=== PATIENT | male | born 1955 | race Caucasian/White ===

== ENCOUNTER 2022-07-28 05:51 | Day surgery (SDC) | payer MEDICARE, MEDICAID ==
[2022-07-27 13:15] LABS: BASOPHILS % (AUTO) 0.5 % (0-1); EOSINOPHILS # (AUTO) 0.2 X10'3 (0-0.9); EOSINOPHILS % (AUTO) 3.2 % (0-6); HEMATOCRIT 43.8 % (42.0-52.0); HEMOGLOBIN 14.8 g/dl (14.0-17.9); LYMPHOCYTES # (AUTO) 1.5 X10'3 (1.1-4.8); LYMPHOCYTES % (AUTO) 28.3 % (21-51); MEAN CORPUSCULAR HEMOGLOBIN 30.1 PG (27.0-31.0); MEAN CORPUSCULAR HGB CONC 33.8 g/dL (33.0-36.5); MEAN CORPUSCULAR VOLUME 89.1 FL (78-98); MEAN PLATELET VOLUME 7.5 FL (7.4-10.4); MONOCYTES # (AUTO) 0.5 X10'3 (0-0.9); MONOCYTES % (AUTO) 9.4 % (2-12); NEUTROPHILS # (AUTO) 3.1 X10'3 (1.8-7.7); NEUTROPHILS % (AUTO) 58.6 % (42-75); PLATELET COUNT 173 X10'3 (140-440); RED BLOOD COUNT 4.91 X10'6 (4.70-6.10); RED CELL DISTRIBUTION WIDTH 15.4 % (11.5-14.5); WHITE BLOOD COUNT 5.3 X10'3 (4.5-11.0)
[2022-07-27 13:21] LABS: ALBUMIN 3.6 G/DL (3.4-5.0); ANION GAP 7 (8-16); APTT 30 SECONDS (22-32); BLOOD UREA NITROGEN 23 MG/DL (7-18); BUN/CREATININE RATIO 15.4 (5.4-32.0); CALCIUM 8.7 MG/DL (8.5-10.1); CHLORIDE 105 MMOL/L (99-107); CREATININE 1.49 MG/DL (0.60-1.10); GLUCOSE 163 MG/DL (70-104); POTASSIUM 4.3 MMOL/L (3.5-5.1); SODIUM 139 MMOL/L (135-145); TOTAL CARBON DIOXIDE 27.2 MMOL/L (24-32); eGFR 47 ML/MIN
[~2022-07-28] VITALS: Ht 177.8 cm; Wt 107.1 kg
[2022-07-28] VITALS (15 sets, daily range): BP systolic 114–137; BP diastolic 57–99
[~2022-07-28 05:51] MED LIST: ATOR40TA72 PO; CLOP75TA33 PO; GABA-534 PO; HYDR-3972 PO; LISI10TA27 PO; LOP25T PO; MORP-92 PO; iohexol 350 MG/ML 50ML vial IV ONE
[2022-07-28] MEDS ORDERED: diphenhydrAMINE 25mg capsule PO PRN (06:20)
[2022-07-28] MEDS ORDERED: sodium bicarbonate 1meq/ml syr 150 ML in dextrose 5%-water 850 ML IV ONE ×2 (06:20→11:55)
[2022-07-28] MEDS ORDERED: LORazepam 0.5 MG tablet PO PRN (06:20)
[2022-07-28] MEDS ORDERED: acetylcysteine 200 MG/ml 4ml vial PO PRN ×2 (06:20→11:55)
[2022-07-28] MEDS ORDERED: normal saline 1,000 ML IV SCH (06:20)
[2022-07-28] MEDS ORDERED: ASPI-611 PO (06:43)
[2022-07-28] MEDS ORDERED: NITR0.4T48 SL (06:44)
[2022-07-28] MEDS ORDERED: verapamil 2.5 mg/ml inj IV ONE (07:33)
[2022-07-28] MEDS ORDERED: nitroGLYCERIN-Tridil 50MG/D5W 250 ML IV ONE (07:33)
[2022-07-28] MEDS ORDERED: fentaNYL/PF 50MCG/1 ML 2ML syringe ONE (07:34)
[2022-07-28] MEDS ORDERED: midazolam 1 mg/ML 2ml injection ONE (07:34)
[2022-07-28] MEDS ORDERED: LIDOcaine 1% (10mg/ml) 2ml vial ONE (07:34)
[2022-07-28] MEDS ORDERED: iohexol 350MG/ML 100ml bottle IV ONE ×3 (07:34→09:14)
[2022-07-28] MEDS ORDERED: heparin 1,000unit/ml 10ml vial 10 ML ONE (07:34)
[2022-07-28] MEDS ORDERED: iohexol 350 MG/ML 50ML vial IV ONE (07:41)
[2022-07-28] MEDS ORDERED: HEPARIN SOD,PORK IN 0.45% NACL 250 ML IV ONE (08:51)
[2022-07-28] MEDS ORDERED: clopidogrel 300mg tablet ONE (09:26)
[2022-07-28] MEDS ORDERED: furosemide 40mg/4ml inj ONE (09:34)
[2022-07-28 10:23] LABS: ISTAT Hct MIX 41 %PCV (42-52); ISTAT O2 SATURATION MIX VENOUS 64 % (60-80); ISTAT SOURCE BLNK
[2022-07-28 10:23] LABS: ISTAT HGB ART 14.3 g/dl (14.0-17.9); ISTAT Hct ART 42 %PCV (42-52); ISTAT O2 SATURATION ARTERIAL 97 % (95-98); ISTAT SOURCE BLNK
[2022-07-28] MEDS ORDERED: sodium bicarbonate 1meq/ml syr 150 ML in dextrose 5%-water 1,000 ML IV ONE (10:25)
[2022-07-28] MEDS ORDERED: SODIUM BICARB 150mEq/D5W 1L 1,000 ML IV ONE (10:35)
[2022-07-28] MEDS ORDERED: acetylcysteine 200 MG/ml 4ml vial PO ONE ×2 (11:15→17:00)
[2022-07-28] MEDS ORDERED: HYDROcodone/acetaminophen 10/325mg tab PO PRN ×2 (11:50)
[2022-07-28] MEDS ORDERED: HYDROcodone/acetaminophen 5mg/325mg tablet PO PRN ×2 (11:50)
[2022-07-29] MEDS ORDERED: clopidogrel 75mg tablet PO SCH ×2 (08:00)
== END 2022-07-28 16:55 | disposition short-term general hospital (02) ==
LOC: SSTAY O 05:51
PROVIDERS: ATTEND Internal Medicine Cardiovascular Disease
DX: T82.855A Stenosis of coronary artery stent, initial encounter (principal); I35.2 Nonrheumatic aortic (valve) stenosis with insufficiency; I25.10 Atherosclerotic heart disease of native coronary artery without angina pectoris; I10 Essential (primary) hypertension; E78.5 Hyperlipidemia, unspecified; J44.9 Chronic obstructive pulmonary disease, unspecified; E66.3 Overweight; Z68.34 Body mass index [BMI] 34.0-34.9, adult; M19.09 Primary osteoarthritis, other specified site; F17.211 Nicotine dependence, cigarettes, in remission; Z98.890 Other specified postprocedural states; Z79.01 Long term (current) use of anticoagulants; Z79.899 Other long term (current) drug therapy; Z79.82 Long term (current) use of aspirin; Z82.3 Family history of stroke; Z81.8 Family history of other mental and behavioral disorders; Y83.8 Other surgical procedures as the cause of abnormal reaction of the patient, or of later complication, without mention of misadventure at the time of the procedure; Y92.89 Other specified places as the place of occurrence of the external cause
CPT/HCPCS: 36415; 76937; 80048; 82803; 85014; 85025; 85347; 85610; 85730; 92920; 93005; 93460; 93567; 99152; 99153; A6258; C1725; C1751; C1769; C1894; J1644; J1940; J2250; J3010; J3490; J7030; J7070; Q0163; Q9967; A6402

== ENCOUNTER 2023-04-06 11:07 | Emergency (ER) | payer MEDICARE, MEDICAID ==
[~2023-04-06] VITALS: Ht 177.8 cm; Wt 103.0 kg
[~2023-04-06 11:07] MED LIST changes: +ASPI-611 PO; -GABA-534 PO; -HYDR-3972 PO; -MORP-92 PO; +NITR0.4T48 SL; -iohexol 350 MG/ML 50ML vial IV ONE
[2023-04-06] MEDS ORDERED: ondansetron/PF 4mg/2ml inj IV ONE (13:05)
[2023-04-06] MEDS ORDERED: morphine 4 MG/ML inj SYRINge IV ONE ×2 (13:05→14:30)
--- NOTE | 2023-04-06 13:38 | NUR ---
5 RECEIVED REPORT FROM JONATHAN RN ASSUMING CARE DURING 30 MIN LUNCH BREAK
[2023-04-06 14:59] LABS: BASOPHILS % (AUTO) 0.4 % (0-1); EOSINOPHILS # (AUTO) 0.1 X10'3 (0-0.9); EOSINOPHILS % (AUTO) 2.8 % (0-6); HEMATOCRIT 39.7 % (42.0-52.0); HEMOGLOBIN 13.1 g/dl (14.0-17.9); LYMPHOCYTES # (AUTO) 1.4 X10'3 (1.1-4.8); LYMPHOCYTES % (AUTO) 25.4 % (21-51); MEAN CORPUSCULAR HEMOGLOBIN 29.4 PG (27.0-31.0); MEAN CORPUSCULAR HGB CONC 33.1 g/dL (33.0-36.5); MEAN CORPUSCULAR VOLUME 88.7 FL (78-98); MEAN PLATELET VOLUME 7.3 FL (7.4-10.4); MONOCYTES # (AUTO) 0.5 X10'3 (0-0.9); NEUTROPHILS # (AUTO) 3.4 X10'3 (1.8-7.7); NEUTROPHILS % (AUTO) 62.4 % (42-75); PLATELET COUNT 164 X10'3 (140-440); RED BLOOD COUNT 4.47 X10'6 (4.70-6.10); RED CELL DISTRIBUTION WIDTH 16.9 % (11.5-14.5); WHITE BLOOD COUNT 5.4 X10'3 (4.5-11.0)
[2023-04-06 15:11] LABS: ALANINE AMINOTRANSFERASE 36 U/L (12-78); ALBUMIN 3.3 G/DL (3.4-5.0); ALBUMIN/GLOBULIN RATIO 0.9 (1.1-1.5); ALKALINE PHOSPHATASE 65 IU/L (46-116); ANION GAP 5 (8-16); ASPARTATE AMINO TRANSFERASE 31 U/L (10-37); BILIRUBIN,TOTAL 0.4 MG/DL (0.1-1.0); BLOOD UREA NITROGEN 27 MG/DL (7-18); BUN/CREATININE RATIO 21.8 (10.0-20.0); CALCIUM 8.9 MG/DL (8.5-10.1); CHLORIDE 105 MMOL/L (99-107); CREATININE 1.24 MG/DL (0.60-1.10); GLUCOSE 121 MG/DL (70-104); POTASSIUM 5.2 MMOL/L (3.5-5.1); SODIUM 134 MMOL/L (135-145); TOTAL CARBON DIOXIDE 24.3 MMOL/L (24-32); TOTAL PROTEIN 6.8 G/DL (6.4-8.2); eCRCL 59 ML/MIN; eGFR 58 ML/MIN
[2023-04-06 15:13] LABS: APTT 29 SECONDS (22-32); PROTHROMBIN TIME 10.4 SECONDS (9.0-12.0)
[2023-04-06] MEDS ORDERED: fentaNYL/PF 50MCG/1 ML 2ML syringe IV ONE (16:00)
[2023-04-06] MEDS ORDERED: propofol 10mg/ml 20ml vial IV ONE (16:05)
[2023-04-06] MEDS ORDERED: HYDR-3973 PO ×3 (17:52→20:24)
[2023-04-06 18:28] VITALS: BP 152/68; PULSE 64; RESP 17; TEMP 97.9; O2SAT 97
== END 2023-04-06 18:33 | disposition home or self-care (01) ==
LOC: ER 11:08
DX: S52.092A Other fracture of upper end of left ulna, initial encounter for closed fracture (principal); X58.XXXA Exposure to other specified factors, initial encounter; Y93.89 Activity, other specified; Y92.89 Other specified places as the place of occurrence of the external cause; Y99.8 Other external cause status
CPT/HCPCS: 24600; 36415; 71045; 73080; 73090; 80053; 85025; 85610; 85730; 96374; 96375; 96376; 99152; 99285; J2270; J2405; J3010; J7030; 94760; A4620

== ENCOUNTER 2024-07-19 06:05 | Day surgery (SDC) | payer BC, MEDICAID ==
[2024-07-18 11:51] LABS: BASOPHILS % (AUTO) 0.6 % (0-1); EOSINOPHILS # (AUTO) 0.1 X10'3 (0-0.9); EOSINOPHILS % (AUTO) 2.1 % (0-6); HEMATOCRIT 46.2 % (42.0-52.0); HEMOGLOBIN 15.7 g/dl (14.0-17.9); LYMPHOCYTES # (AUTO) 1.5 X10'3 (1.1-4.8); MEAN CORPUSCULAR HEMOGLOBIN 30.2 PG (27.0-31.0); MEAN CORPUSCULAR VOLUME 88.8 FL (78-98); MEAN PLATELET VOLUME 7.4 FL (7.4-10.4); MONOCYTES # (AUTO) 0.7 X10'3 (0-0.9); MONOCYTES % (AUTO) 9.7 % (2-12); NEUTROPHILS # (AUTO) 4.5 X10'3 (1.8-7.7); NEUTROPHILS % (AUTO) 65.6 % (42-75); PLATELET COUNT 189 X10'3 (140-440); RED BLOOD COUNT 5.21 X10'6 (4.70-6.10); RED CELL DISTRIBUTION WIDTH 16.3 % (11.5-14.5); WHITE BLOOD COUNT 6.9 X10'3 (4.5-11.0)
[2024-07-18 12:08] LABS: ALBUMIN 3.6 G/DL (3.4-5.0)
[2024-07-18 12:10] LABS: APTT 29 SECONDS (22-32)
[2024-07-18 12:16] LABS: ANION GAP 9 (8-16); BLOOD UREA NITROGEN 25 MG/DL (7-18); BUN/CREATININE RATIO 16.2 (10.0-20.0); CHLORIDE 103 MMOL/L (99-107); CREATININE 1.54 MG/DL (0.60-1.10); GLUCOSE 150 MG/DL (70-104); POTASSIUM 4.8 MMOL/L (3.5-5.1); PROTHROMBIN TIME 10.3 SECONDS (9.0-12.0); SODIUM 138 MMOL/L (135-145); eGFR 45 ML/MIN
[~2024-07-19] VITALS: Ht 177.8 cm; Wt 105.6 kg
[2024-07-19] VITALS (11 sets, daily range): BP systolic 111–135; BP diastolic 56–68; PULSE 57–64; RESP 12–16; TEMP 98.1; O2SAT 94–96
[~2024-07-19 06:05] MED LIST changes: +HYDR-3973 PO
[2024-07-19] MEDS ORDERED: acetylcysteine 200 MG/ml 4ml vial PO PRN (06:25)
[2024-07-19] MEDS ORDERED: LORazepam 0.5 MG tablet PO PRN (06:25)
[2024-07-19] MEDS: sodium bicarbonate 1meq/ml syr 150 ML in dextrose 5%-water 1,000 ML IV ONE (07:23)
[2024-07-19] MEDS ORDERED: nitroGLYCERIN 500mcg/5mL D5W 5 ML IV ONE (07:24)
[2024-07-19] MEDS: diphenhydrAMINE 25mg capsule PO PRN (07:25)
[2024-07-19] MEDS ORDERED: LIDOcaine 1% (10mg/ml) 2ml vial ONE (07:25)
[2024-07-19] MEDS ORDERED: iohexol 350 MG/ML 50ML vial IV ONE (07:25)
[2024-07-19] MEDS ORDERED: iohexol 350MG/ML 100ml bottle IV ONE (07:25)
[2024-07-19] MEDS ORDERED: heparin 1,000unit/ml 10ml vial 10 ML ONE (07:25)
[2024-07-19] MEDS ORDERED: verapamil 2.5 mg/ml inj IV ONE (07:25)
[2024-07-19] MEDS: acetylcysteine 200 MG/ml 4ml vial PO SCH (07:27)
[2024-07-19] MEDS: normal saline 1,000 ML IV SCH (07:28)
[2024-07-19] MEDS ORDERED: LIDOcaine 1% 30ml preserv. free vial ONE (07:35)
[2024-07-19] MEDS ORDERED: midazolam 1 mg/ML 2ml injection ONE (08:18)
[2024-07-19] MEDS ORDERED: fentaNYL/PF 50MCG/1 ML 2ML syringe ONE (08:18)
[2024-07-19 09:31] LABS: ISTAT HGB ART 14.3 g/dl (14.0-17.9); ISTAT Hct ART 42 %PCV (42-52); ISTAT O2 SATURATION ARTERIAL 95 % (95-98); ISTAT SOURCE ART
[2024-07-20 06:23] LABS: ISTAT HGB MIX 14.3 g/dl (14.0-17.9); ISTAT Hct MIX 42 %PCV (42-52); ISTAT O2 SATURATION MIX VENOUS 63 % (60-80); ISTAT SOURCE VEN
== END 2024-07-19 14:00 | disposition home or self-care (01) ==
LOC: SSTAY O 06:05
PROVIDERS: ATTEND Internal Medicine Cardiovascular Disease
DX: R94.39 Abnormal result of other cardiovascular function study (principal); I25.10 Atherosclerotic heart disease of native coronary artery without angina pectoris; I35.2 Nonrheumatic aortic (valve) stenosis with insufficiency; I10 Essential (primary) hypertension; E78.5 Hyperlipidemia, unspecified; J44.9 Chronic obstructive pulmonary disease, unspecified; T82.855A Stenosis of coronary artery stent, initial encounter; E66.3 Overweight; Z95.5 Presence of coronary angioplasty implant and graft; Z82.61 Family history of arthritis; Z82.3 Family history of stroke; Z68.33 Body mass index [BMI] 33.0-33.9, adult
CPT/HCPCS: 36415; 80048; 82803; 85014; 85025; 85610; 85730; 93005; 93460; 99152; 99153; A6258; J1644; J2003; J2250; J3010; J3490; J7030; J7070; Q0163; Q9967; 76937; 93458; A6402; C1725; C1751; C1769; C1894